=== PATIENT | female | born 1985 | race Caucasian/White ===

== ENCOUNTER 2018-02-18 15:51 | Emergency (ER) | payer MEDICAID, OTHER ==
[~2018-02-18] VITALS: Ht 160 cm; Wt 57.6 kg
--- NOTE | 2018-02-18 15:55 | NUR ---
PATIENT FROM HOME C/O R ANKLE PAIN S/P TRIP ON A CURB. DENIES ANY OTHER COMPLAINT. A/OX4. VSS. AWAITING FOR MD CASTILLO. WILL MONIOTR ACCORDINGLY
[2018-02-18] MEDS ORDERED: IBUPROFEN 600 MG TABLET PO ONE ×2 (16:20→16:30)
--- NOTE | 2018-02-18 17:01 | NUR ---
Patient discharged to home in stable condition. Written and verbal after care instructions given. Patient verbalizes understanding of instruction. Prescription given to patient. Cructches and guzman bandage given as well.
[2018-02-18 17:02] VITALS: BP 105/49
== END 2018-02-18 17:03 | disposition home or self-care (01) ==
LOC: ER 15:52
DX: S93.491A Sprain of other ligament of right ankle, initial encounter (principal); Z60.2 Problems related to living alone; X50.1XXA Overexertion from prolonged static or awkward postures, initial encounter; Y93.89 Activity, other specified; Y92.481 Parking lot as the place of occurrence of the external cause; Y99.8 Other external cause status
CPT/HCPCS: 73610; 73630; 99284; A4606; Z7610